=== PATIENT | male | born 1980 | race American Indian/Alaskan Native ===

== ENCOUNTER 2020-06-03 23:39 | Emergency (ER) | payer MEDICARE, MEDICAID ==
[2020-06-04 00:48] VITALS: BP 136/94
[2020-06-04 01:00] LABS: Basophils % (Auto) 0.2 % (0.0-1.8); Eosinophils % (Auto) 0.3 % (0.0-4.3); Hematocrit 47.3 % (35.5-45.6); Lymphocytes # (Auto) 1.4 K/mm3 (1.2-5.4); Mean Corpuscular HGB Conc 34 % (32-34); Mean Corpuscular Volume 96 fl (84-94); Monocytes # (Auto) 0.8 K/mm3 (0.0-0.8); Monocytes % (Auto) 6.5 % (0.0-7.3); Platelet Count 252 K/mm3 (140-440); Red Blood Count 4.91 M/mm3 (3.65-5.03)
[2020-06-04 01:22] LABS: Alanine Aminotransferase 18 units/L (7-56); Albumin 4.4 g/dL (3.9-5); BUN/Creatinine Ratio 16; Blood Urea Nitrogen 14 mg/dL (9-20); Calcium 9.6 mg/dL (8.4-10.2); Hemolysis Index 12
[2020-06-04 01:49] LABS: Bilirubin,Urine NEG (Negative); Blood,Urine NEG (Negative); Color,Urine Yellow (Yellow); Mucus,Urine FEW /HPF; Protein,Urine <15 mg/dL mg/dL (Negative); Urobilinogen,Urine < 2.0 mg/dL (<2.0)
[2020-06-04] MEDS ORDERED: ONDANSETRON 4 MG ODT TAB PO STA (04:44)
[2020-06-04] MEDS ORDERED: HYOSCYAMINE SUBL 0.125 MG TAB SL ONE (04:44)
--- NOTE | 2020-06-04 05:10 | Cat Scan Report ---
CT ABDOMEN AND PELVIS WITH CONTRAST HISTORY: Patient complains of LEFT lower abdominal pain.. COMPARISON: None. TECHNIQUE: CT images of the abdomen and pelvis were obtained following administration of intravenous contrast. All CT scans at this location are performed using CT dose reduction for ALARA by means of automated exposure control. CONTRAST: 100 ml of intravenous contrast administered. FINDINGS: Lungs/bones: Lung bases are clear. There are degenerative changes in the lower lumbar spine with not marcel acute. Abdomen/pelvis: Liver, spleen, pancreas, adrenals, and kidneys appear unremarkable. Gallbladder surg ically absent. There is rectus diastasis. Urinary bladder and prostate appear unremarkable with no p elvic free fluid or acute colonic abnormality. The appendix is normal. IMPRESSION: 1. No acute abnormality. Signer Name: Pete Vanegas MD Signed: 06/04/2020 5:05 AM Workstation Name: [id number]
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
== END 2020-06-04 06:00 | disposition home or self-care (01) ==
LOC: ED 23:39
DX: R10.9 Unspecified abdominal pain (principal); F12.10 Cannabis abuse, uncomplicated; Z90.49 Acquired absence of other specified parts of digestive tract; Z98.890 Other specified postprocedural states; Z91.013 Allergy to seafood
CPT/HCPCS: 36415; 74177; 80053; 81001; 83690; 85025; 99284; Q9967; Q0162